=== PATIENT | female | born 2000 | race Two or more races ===

== ENCOUNTER 2019-11-24 12:48 | Emergency (ER) | payer OTHER ==
[~2019-11-24] VITALS: Ht 167.6 cm; Wt 70.3 kg
[2019-11-24 12:50] VITALS: BP 127/71
== END 2019-11-24 13:27 | disposition home or self-care (01) ==
LOC: ER 12:51
DX: J45.909 Unspecified asthma, uncomplicated (principal); Z86.19 Personal history of other infectious and parasitic diseases

== ENCOUNTER 2020-04-26 00:11 | Emergency (ER) | payer OTHER ==
[~2020-04-26] VITALS: Ht 167.6 cm; Wt 70.3 kg
[2020-04-26 00:12] VITALS: BP 132/65
--- NOTE | 2020-04-26 01:30 | NUR ---
PT IS AAOX4. C/O R FOOT EDEMA. PT STATED SHE WAS SEEN "HERE" AND TOLD "SOMETHING IN YOUR LEG CAN TRAVEL TO YOUR HEART AND EVENTUALLY YOU CAN " THEN PT STATED "HIS IS [facility] RIGHT." UPON ASSESSMENT PT DENIES ANY PAIN AND NO EVEDIENCE OF VASCULAR ISSUES NOTED. DENIES TRAUMA. UPON DISCHARGE PT AMBULATED WITH STEADY GAIT. I SPOKE TO THE PT REGARDING FOLLOWING UP AN OUTPATIENT AND FINDING A ALEX MD SINCE SHE STATED SHE DID NOT HAVE ONE.
== END 2020-04-26 01:36 | disposition home or self-care (01) ==
LOC: ER 00:17
DX: R60.0 Localized edema (principal); J45.909 Unspecified asthma, uncomplicated

== ENCOUNTER 2021-05-22 18:51 | Emergency (ER) | payer OTHER ==
[~2021-05-22] VITALS: Ht 165.1 cm; Wt 55.8 kg
--- NOTE | 2021-05-22 19:17 | NUR ---
[id number] FROM HOME S/P BOYFRIEND NOTED PATIENT UNRESPONSIVE. NARCAN 4MG INTRANASAL GIVEN. RESPIRATIONS ARE EVEN AND NONLABORED; TOLERATING R/A WELL.
[2021-05-22 20:16] LABS: BASOPHILS # (AUTO) 0.1 K/uL (0.0-0.2); BASOPHILS % (AUTO) 0.8 % (0.0-2.0); EOSINOPHILS % (AUTO) 3.4 % (0.0-6.0); HEMATOCRIT 34 % (33-45); HEMOGLOBIN 11.4 g/dL (11.5-14.8); LYMPHOCYTES # (AUTO) 1.8 K/uL (0.8-4.8); MEAN CORPUSCULAR HGB CONC 34 g/dl (31.0-36.0); MEAN CORPUSCULAR VOLUME 88 fL (82-100); MONOCYTES # (AUTO) 0.6 K/uL (0.1-1.30); MONOCYTES % (AUTO) 6.4 % (2.0-12.0); NEUTROPHILS # (AUTO) 6.2 K/uL (1.8-8.9); NEUTROPHILS % (AUTO) 69.4 % (43.0-81.0); PLATELET COUNT (AUTO) 262 K/uL (150-450); RED BLOOD CELL COUNT(AUTO) 3.85 MIL/uL (4.0-5.2); WHITE BLOOD COUNT (AUTO) 8.9 K/uL (4.3-11.0)
[2021-05-22 20:28] LABS: CALCIUM, SERUM 8.8 mg/dL (8.5-10.1); CREATININE 0.7 mg/dL (0.6-1.3); POTASSIUM 3.2 mmol/L (3.5-5.1)
[2021-05-22] MEDS ORDERED: NALO4SPR NS (20:46)
[2021-05-22] MEDS ORDERED: POTASSIUM CHLORIDE 20 MEQ TAB.PRT.SR PO ONE ×2 (21:00→22:16)
--- NOTE | 2021-05-22 21:00 | NUR ---
PT RESPONSIVE BUT NOT ABLE TO FOLLOW COMMANDS. DID NOT PASS SWALLOW EVAL AT THIS TIME
--- NOTE | 2021-05-22 22:19 | NUR ---
PT AWAKEN FROM HE SLEEP. NOT IN ANY DISTRESS. AMBULATED TO THE BATHROOM ON HER OWN WITH ANY ASSIST ON STABLE GAIT. PT WAS ALSO PROVIDED WITH WATER AND TOLERATED PO CHALLENGE. PT REQUESTING TO GO HOME.
--- NOTE | 2021-05-22 22:20 | NUR ---
Patient discharged to home in stable condition. Written and verbal after care instructions given. Patient verbalizes understanding of instruction.IV removed. Catheter intact and site benign. Pressure and 4x4 applied to site. No bleeding noted. Pt ambulatory with a steady gait
[2021-05-22 22:21] VITALS: BP 121/72
== END 2021-05-22 22:23 | disposition home or self-care (01) ==
LOC: ER 18:54
DX: T40.601A Poisoning by unspecified narcotics, accidental (unintentional), initial encounter (principal); R07.89 Other chest pain; J45.909 Unspecified asthma, uncomplicated; F17.200 Nicotine dependence, unspecified, uncomplicated; Y92.89 Other specified places as the place of occurrence of the external cause
CPT/HCPCS: 36415; 71045-TC; 80048-TC; 85025-TC

== ENCOUNTER 2023-05-29 13:39 | Emergency (ER) | payer OTHER ==
[~2023-05-29] VITALS: Ht 167.6 cm; Wt 61.2 kg
[~2023-05-29 13:39] MED LIST: NALO4SPR NS
[2023-05-29 15:36] VITALS: BP 110/73; TEMP 98.2; O2SAT 98
== END 2023-05-29 15:36 ==
LOC: ER 13:50
DX: T40.2X1A Poisoning by other opioids, accidental (unintentional), initial encounter (principal); R41.82 Altered mental status, unspecified; J45.909 Unspecified asthma, uncomplicated; Y92.89 Other specified places as the place of occurrence of the external cause